=== PATIENT | female | born 1980 | race Two or more races ===

== ENCOUNTER 2017-12-03 13:43 | Emergency (ER) | payer SELFPAY ==
[~2017-12-03] VITALS: Ht 172.7 cm; Wt 72.6 kg
[2017-12-03 13:43] VITALS: BP 155/94
== END 2017-12-03 14:28 | disposition home or self-care (01) ==
LOC: ER 13:48
DX: K04.7 Periapical abscess without sinus (principal); K02.9 Dental caries, unspecified; K03.2 Erosion of teeth; Z98.890 Other specified postprocedural states; Z88.6 Allergy status to analgesic agent
CPT/HCPCS: A4606; Z7610

== ENCOUNTER 2020-07-27 03:13 | Emergency (ER) | payer MEDICAID ==
[~2020-07-27] VITALS: Ht 172.7 cm; Wt 72.6 kg
--- NOTE | 2020-07-27 03:47 | NUR ---
PATIENT BIB [employer] C/O SUICIDAL IDEATION- "I TOOK 19 PILLS". PT IS AGITATED. PATIENT IS AAOX4. PATIENT IS BREATHING EVENLY AND UNLABORED ON ROOM AIR. CONNECTED TO THE MONITOR.
--- NOTE | 2020-07-27 03:49 | NUR ---
SPOKE WITH LATANYA FROM POISON CONTROL. 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
[2020-07-27] MEDS ORDERED: IV NS 0.9% 1,000 ML BAG IV ONE (04:00)
[2020-07-27 04:26] LABS: BASOPHILS % (AUTO) 0.4 % (0.0-2.0); EOSINOPHILS % (AUTO) 2.5 % (0.0-6.0); HEMATOCRIT 36 % (33-45); HEMOGLOBIN 12.5 g/dL (11.5-14.8); LYMPHOCYTES # (AUTO) 2.5 /CMM (0.8-4.8); LYMPHOCYTES % (AUTO) 44.3 % (20.0-44.0); MEAN CORPUSCULAR HGB CONC 35 g/dl (31.0-36.0); MEAN CORPUSCULAR VOLUME 97 fL (82-100); MONOCYTES # (AUTO) 0.5 /CMM (0.1-1.30); MONOCYTES % (AUTO) 8.2 % (2.0-12.0); NEUTROPHILS # (AUTO) 2.5 /CMM (1.8-8.9); NEUTROPHILS % (AUTO) 44.6 % (43.0-81.0); PLATELET COUNT (AUTO) 180 /CMM (150-450); RED BLOOD CELL COUNT(AUTO) 3.74 MIL/uL (4.0-5.2); WHITE BLOOD COUNT (AUTO) 5.7 K/uL (4.3-11.0)
[2020-07-27] MEDS ORDERED: OLANZAPINE 10 MG VIAL IM ONE ×2 (04:26→05:00)
[2020-07-27 04:43] LABS: BILIRUBIN,URINE NEGATIVE (NEGATIVE); COLOR,URINE YELLOW (YELLOW); LEUKOCYTE ESTERASE ,URINE NEGATIVE (NEGATIVE); NITRITE, URINE NEGATIVE (NEGATIVE); PROTEIN,URINE NEGATIVE (NEGATIVE); UGLUCOSE NEGATIVE (NEGATIVE); UROBILINOGEN,URINE 0.2 EU/dL (0.2)
[2020-07-27 05:07] LABS: CALCIUM, SERUM 8.8 mg/dL (8.5-10.1); CARBON DIOXIDE 18 mmol/L (21-32); CHLORIDE 106 mmol/L (98-107); CREATININE 0.7 mg/dL (0.6-1.3); GLUCOSE 113 mg/dL (74-106); POTASSIUM 3.9 mmol/L (3.5-5.1); SODIUM SERUM 142 mmol/L (136-145); UREA NITROGEN, BLOOD 12 mg/dL (7-18)
[2020-07-27 05:13] LABS: ALANINE AMINOTRANSFERASE 19 U/L (12-78); ALBUMIN 4.2 g/dL (3.4-5.0); ALCOHOL, BLOOD 257 mg/dL (0-0); ALKALINE PHOSPHATASE 50 U/L (46-116); ASPARTATE AMINOTRANSFERASE 22 U/L (15-37); BILIRUBIN,DIRECT 0.1 mg/dL (0.0-0.2); BILIRUBIN,TOTAL 0.2 mg/dL (0.2-1.0); TOTAL PROTEIN, SERUM 7.8 g/dL (6.4-8.2)
[2020-07-27 05:29] LABS: ACETAMINOPHEN < 2 ug/ml (10-30)
--- NOTE | 2020-07-27 05:46 | NUR ---
Carson mcdaniels in EDM - 07/27/20 at 0550 by MELISSA SPOKE WITH PT'S BOYFRIEND JOSE, STATES PT TOOK OVER 10 PILLS OF HIS PRESCRIPTION OF PRAVASTATIN, NOT TRAZADONE. AWARE
--- NOTE | 2020-07-27 05:50 | NUR ---
SPOKE WITH PT'S BOYFRIEND JOSE, STATES HE WITNESSED THE PT TOOK OVER 10 PILLS OF HIS PRESCRIPTION OF PRAVASTATIN, NOT TRAZADONE. MD ALONZO
--- NOTE | 2020-07-27 05:51 | NUR ---
JOSE LOUIS (BOYFRIEND) [phone]
--- NOTE | 2020-07-27 05:53 | NUR ---
SPOKE WITH LATANYA FROM POISON CONTROL AND INFORMED PT TOOK PRAVASTATIN, NOT TRAZADONE. PER LATANYA NOT NECESSARY TO MONITOR PATIENT OF 4-6 HOURS. MD ALONZO
--- NOTE | 2020-07-27 06:19 | NUR ---
SPOKE WITH PT'S BOYFRIEND WHO CLARIFIED MEDICATION WAS PRAZOSIN. CALLED POISON CONTROL TO VERIFY AND SPOKE WITH CHAGO HICKS FOR REFLEX TACHYCARDIA, ORTHOSTATIC HYPOTENSION, DIZZINESS RECOMMENDED TO REPEAT CHEM IN 4 HOURS
--- NOTE | 2020-07-27 07:33 | NUR ---
REPORT GIVEN TO MARYA VILLAVICENCIO FOR JOSÉ LUIS.
--- NOTE | 2020-07-27 07:50 | NUR ---
Assumed intensive care unit registered nurse[ort given by Tomás Franklin [id number] .
--- NOTE | 2020-07-27 08:00 | NUR ---
Patient asleep but arousable vitals taken and filed remain sitter @ bedside .
--- NOTE | 2020-07-27 08:26 | NUR ---
covid swab collected and sent to lab
--- NOTE | 2020-07-27 09:26 | NUR ---
received a call from the lab regarding covid result "negative".
[2020-07-27 09:42] VITALS: BP 107/67
--- NOTE | 2020-07-27 11:45 | NUR ---
Poison control called for follow up requested for repeat alcohol and Chemistry MD aware .
[2020-07-27 12:15] LABS: ALBUMIN 3.9 g/dL (3.4-5.0); BILIRUBIN,TOTAL 0.4 mg/dL (0.2-1.0); CALCIUM, SERUM 8.5 mg/dL (8.5-10.1); CREATININE 0.7 mg/dL (0.6-1.3); POTASSIUM 3.9 mmol/L (3.5-5.1); TOTAL PROTEIN, SERUM 7.1 g/dL (6.4-8.2)
--- NOTE | 2020-07-27 13:00 | NUR ---
Patient awake requesting for bathroom keep patient clean and dry ,patient refused to eat @ this time .
--- NOTE | 2020-07-27 15:00 | NUR ---
Patient awake no agitaion no hallucination refused Saline lock time patientable to drink water and had lunch ,DR. Whitaker aware ok to give oral fluid .
--- NOTE | 2020-07-27 15:30 | NUR ---
[facility] CALLED ETA 60 MINS.
--- NOTE | 2020-07-27 16:07 | NUR ---
SPOKE TO POISON CONTROL, RECOMMENDING TO GIVE MORE FLUIDS DUE TO ELEVATED ANION GAP. AND TO REPEAT CHEMISTRY PANEL LATER.
[2020-07-27] MEDS ORDERED: IV NS 0.9% 1,000 ML IV ONE (16:30)
--- NOTE | 2020-07-27 16:52 | NUR ---
Patient awake alert noted no hallucination no agitation she follows command aware awaiting for Pet eval ./psyc
--- NOTE | 2020-07-27 17:47 | NUR ---
Patient awake alert denies SI no hallucination no agittaion noted able to ambulated to bathroom renee weber CNA
--- NOTE | 2020-07-27 18:37 | NUR ---
Patient is clear and Dc home By Remote Advisor referrals given ,patient boy friend notified by her patient agrees to follow up PMD in AM .
--- NOTE | 2020-07-27 18:38 | NUR ---
Per patient her Boy friend call cab for her .
--- NOTE | 2020-07-27 18:51 | NUR ---
Partient denies SI and agrees to follow up to PMD .
== END 2020-07-27 18:52 | disposition home or self-care (01) ==
LOC: ER 03:30
DX: T46.6X2A Poisoning by antihyperlipidemic and antiarteriosclerotic drugs, intentional self-harm, initial encounter (principal); Y92.89 Other specified places as the place of occurrence of the external cause; F10.129 Alcohol abuse with intoxication, unspecified; Y90.8 Blood alcohol level of 240 mg/100 ml or more; Z20.822 Contact with and (suspected) exposure to COVID-19; R00.0 Tachycardia, unspecified; Z88.8 Allergy status to other drugs, medicaments and biological substances
CPT/HCPCS: 36415; 80048; 80053; 80076; 80299; 80307; 80320 ×2; 81003; 84703; 85025; 87426; 93005; 96360; 96372; 99285; C9803; J3490; G0480

== ENCOUNTER 2023-10-12 18:11 | Emergency (ER) | payer OTHER ==
[~2023-10-12] VITALS: Ht 172.7 cm; Wt 69.9 kg
[2023-10-12 21:40] LABS: BASOPHILS # (AUTO) 0.1 K/uL (0.0-0.2); BASOPHILS % (AUTO) 1.4 % (0.0-2.0); EOSINOPHILS # (AUTO) 0.2 K/uL (0.0-0.7); EOSINOPHILS % (AUTO) 3.3 % (0.0-6.0); HEMATOCRIT 34 % (33-45); HEMOGLOBIN 11.4 g/dL (11.5-14.8); LYMPHOCYTES # (AUTO) 2.6 K/uL (0.8-4.8); LYMPHOCYTES % (AUTO) 54.2 % (20.0-44.0); MEAN CORPUSCULAR HEMOGLOBIN 32 PG (26.0-33.0); MEAN CORPUSCULAR HGB CONC 34 g/dl (31.0-36.0); MEAN CORPUSCULAR VOLUME 96 fL (82-100); MONOCYTES # (AUTO) 0.3 K/uL (0.1-1.30); MONOCYTES % (AUTO) 7.2 % (2.0-12.0); NEUTROPHILS # (AUTO) 1.6 K/uL (1.8-8.9); NEUTROPHILS % (AUTO) 33.9 % (43.0-81.0); PLATELET COUNT (AUTO) 217 K/uL (150-450); RED BLOOD CELL COUNT(AUTO) 3.52 MIL/uL (4.0-5.2); RED CELL DISTRIBUTION WIDTH 13.3 % (11.5-15.0); WHITE BLOOD COUNT (AUTO) 4.7 K/uL (4.3-11.0)
[2023-10-12 21:59] LABS: INR 1.04 (0.91-1.10); PARTIAL THROMBOPLASTIN TIME 25.6 SEC (24.3-34.3)
[2023-10-12 22:09] LABS: POTASSIUM 3.4 mmol/L (3.5-5.1)
[2023-10-12 22:10] LABS: CALCIUM, SERUM 7.9 mg/dL (8.5-10.1); CREATININE 0.6 mg/dL (0.6-1.3)
[2023-10-12 22:13] LABS: BILIRUBIN,DIRECT 0.1 mg/dL (0.0-0.2); BILIRUBIN,TOTAL 0.5 mg/dL (0.2-1.0)
[2023-10-12 22:14] LABS: ALBUMIN 3.2 g/dL (3.4-5.0); TOTAL PROTEIN, SERUM 6.8 g/dL (6.4-8.2)
[2023-10-12] MEDS: IV NS 0.9% 1,000 ML BAG IV ONE (23:00)
[2023-10-12 23:30] LABS: PREGNANCY TEST URINE QUAL NEGATIVE (NEGATIVE)
[2023-10-12 23:31] LABS: APPEARANCE,URINE CLEAR (CLEAR); BILIRUBIN,URINE NEGATIVE (NEGATIVE); BLOOD, URINE 2+ Ery/uL (NEGATIVE); COLOR,URINE DARK YELLOW (YELLOW); KETONES,URINE NEGATIVE (NEGATIVE); LEUKOCYTE ESTERASE ,URINE NEGATIVE (NEGATIVE); NITRITE, URINE NEGATIVE (NEGATIVE); PH,URINE 5.5 (5.0-8.0); PROTEIN,URINE NEGATIVE (NEGATIVE); UGLUCOSE NEGATIVE (NEGATIVE); UROBILINOGEN,URINE 0.2 EU/dL (0.2)
[2023-10-12 23:32] LABS: ADD URINE CULTURE NO; BACTERIA,URINE Rare /HPF (None Seen); SQUAMOUS EPITHELIAL CELL,UR Rare /HPF (None Seen)
[2023-10-12] MEDS ORDERED: MEDR10TA73 PO (23:37)
[2023-10-12] MEDS ORDERED: FERR-68 PO (23:37)
[2023-10-13 00:05] VITALS: BP 111/61; TEMP 98.3; O2SAT 96
== END 2023-10-13 00:06 | disposition home or self-care (01) ==
LOC: ER 18:21
DX: D25.9 Leiomyoma of uterus, unspecified (principal); R10.2 Pelvic and perineal pain; Z88.1 Allergy status to other antibiotic agents
CPT/HCPCS: 99284; 96360; 76856; 85025; 80048; 80076; 84703; 81001; 36415; 85730; 84702; J7030

== ENCOUNTER 2024-07-09 05:35 | Emergency (ER) | payer OTHER ==
[~2024-07-09] VITALS: Ht 172.7 cm; Wt 68.0 kg
[~2024-07-09 05:35] MED LIST: FERR-68 PO; MEDR10TA73 PO
[2024-07-09 05:44] VITALS: BP 107/78; TEMP 98; O2SAT 100
== END 2024-07-09 06:30 ==
LOC: ER 05:37
DX: S63.501A Unspecified sprain of right wrist, initial encounter (principal); Z79.3 Long term (current) use of hormonal contraceptives; Z88.6 Allergy status to analgesic agent; R20.2 Paresthesia of skin; X58.XXXA Exposure to other specified factors, initial encounter; Y93.89 Activity, other specified; Y92.89 Other specified places as the place of occurrence of the external cause; Y99.8 Other external cause status
CPT/HCPCS: 73110